=== PATIENT | male | born 1965 | race African-American/Black ===

== ENCOUNTER → 2016-06-25 | Outpatient (CLI) | payer BC ==
[2016-06-25 12:31] LABS: CLARITY URINE CLEAR (CLEAR); COLOR URINE YELLOW (YELLOW); GLUCOSE URINE TRACE (NEGATIVE); KETONES URINE NEGATIVE (NEGATIVE); LEUKOCYTE ESTERASE URINE NEGATIVE (NEGATIVE); NITRITE URINE NEGATIVE (NEGATIVE); OCCULT BLOOD URINE NEGATIVE (NEGATIVE); PROTEIN URINE TRACE (NEGATIVE); SPECIFIC GRAVITY URINE 1.026 (1.005-1.030); UROBILINOGEN URINE 0.2 E.U./dL (0.2-1.0)
[2016-06-25 12:41] LABS: BASOPHILS % 1.2 % (0.0-2.0); EOSINOPHILS % 2.6 % (0.0-5.0); LYMPHOCYTES % 38.9 % (20.0-50.0); MEAN CORPUSCULAR HEMOGLOBIN 29.4 pg (28.0-32.0); MEAN CORPUSCULAR VOLUME 86.4 fL (80.0-94.0); MEAN PLATELET VOLUME 9.2 fl (7.4-10.4); MONOCYTES % 12.8 % (2.0-8.0); NEUTROPHILS % 44.5 % (40.0-76.0); PLATELET 167 x1000/uL (130-400); RED BLOOD CELL COUNT 5.09 mill/uL (4.7-6.1); RED CELL DISTRIBUTION WIDTH 13.5 % (11.6-14.6)
[2016-06-25 12:51] LABS: ALBUMIN 3.8 g/dL (3.4-5.0); ANION GAP 13; CALCIUM 8.5 mg/dL (8.5-10.1); CARBON DIOXIDE 29 mEq/L (21-32); CHLORIDE 102 mEq/L (98-107); INDEX HEMOLYSI 1 (1-3); INDEX ICTERIC 1 (1-4); INDEX LIPEMIC 1 (1-3); UREA NITROGEN BLOOD 16 mg/dL (7-21)
[2016-06-25 12:52] LABS: RBC URINE NONE SEEN /hpf (0-2); SQUAMOUS EPITHELIAL CELL URINE NONE SEEN /lpf (RARE/1+); WBC URINE NONE SEEN /hpf (0-2)
[2016-06-25 12:53] LABS: BACTERIA URINE TRACE
[2016-06-25 12:58] LABS: ALANINE AMINOTRANSFERASE 27 IU/L (13-61); HDL CHOLESTEROL 36 mg/dL (40-59); LDL CHOLESTEROL 104 mg/dL (5-100); T4 FREE 0.85 ng/dL (0.76-1.46); TRIGLYCERIDE 77 mg/dL (0-150); eGFR > 60 mL/min (>60)
[2016-06-25 13:02] LABS: THYROID STIMULATING HORMONE 0.67 uIU/mL (0.36-3.74)
[2016-06-27 04:18] LABS: *CREATININE RANDOM URINE 229.6 mg/dL (Not Estab.)
== END | disposition home or self-care (01) ==
LOC: LAB 11:50
PROVIDERS: ATTEND Internal Medicine Endocrinology, Diabetes & Metabolism
DX: I10 Essential (primary) hypertension (principal); E11.9 Type 2 diabetes mellitus without complications; E55.9 Vitamin D deficiency, unspecified; D49.7 Neoplasm of unspecified behavior of endocrine glands and other parts of nervous system; N13.70 Vesicoureteral-reflux, unspecified
CPT/HCPCS: 36415; 80053; 80061; 81001; 82043; 82306; 82533; 82570; 83036; 84439; 84443; 85025; 87086

== ENCOUNTER → 2016-09-17 | Outpatient (CLI) | payer BC ==
[2016-09-17 11:49] LABS: BASOPHILS % 0.2 % (0.0-2.0); EOSINOPHILS % 2.6 % (0.0-5.0); HEMATOCRIT. 44.3 % (42.0-52.0); HEMOGLOBIN. 15.1 g/dL (14.0-18.0); LYMPHOCYTES % 37.1 % (20.0-50.0); MEAN CORPUSCULAR HEMOGLOBIN 29.6 pg (28.0-32.0); MEAN CORPUSCULAR VOLUME 86.6 fL (80.0-94.0); MEAN PLATELET VOLUME 8.9 fl (7.4-10.4); MONOCYTES % 11.7 % (2.0-8.0); NEUTROPHILS % 48.4 % (40.0-76.0); PLATELET 189 x1000/uL (130-400); RED BLOOD CELL COUNT 5.11 mill/uL (4.7-6.1); RED CELL DISTRIBUTION WIDTH 13.8 % (11.6-14.6)
[2016-09-17 12:07] LABS: CARBON DIOXIDE 30 mEq/L (21-32); CHLORIDE 101 mEq/L (98-107); HDL CHOLESTEROL 44 mg/dL (40-59); LDL CHOLESTEROL 94 mg/dL (5-100); T4 FREE 0.86 ng/dL (0.76-1.46)
[2016-09-18 13:07] LABS: *CREATININE RANDOM URINE 235.3 mg/dL (Not Estab.); MICROALBUMIN RANDOM URINE 39.3 ug/mL (Not Estab.); MICROALBUMIN/CREATININE RATIO 16.7 mg/g creat (0.0-30.0)
== END | disposition home or self-care (01) ==
LOC: LAB 11:24
PROVIDERS: ATTEND Internal Medicine Endocrinology, Diabetes & Metabolism
DX: I10 Essential (primary) hypertension (principal); E11.9 Type 2 diabetes mellitus without complications; E04.1 Nontoxic single thyroid nodule
CPT/HCPCS: 36415; 80053; 80061; 82043; 82570; 83036; 84439; 84443; 85025; 86800

== ENCOUNTER → 2016-12-12 | Outpatient (CLI) | payer BC ==
[2016-12-12 08:28] LABS: BASOPHILS % 0.9 % (0.0-2.0); EOSINOPHILS % 2.5 % (0.0-5.0); HEMATOCRIT. 44.8 % (42.0-52.0); HEMOGLOBIN. 15.1 g/dL (14.0-18.0); LYMPHOCYTES % 32.2 % (20.0-50.0); MEAN CORPUSCULAR HEMOGLOBIN 29.4 pg (28.0-32.0); MEAN CORPUSCULAR VOLUME 87.1 fL (80.0-94.0); MEAN PLATELET VOLUME 9.3 fl (7.4-10.4); NEUTROPHILS % 52.4 % (40.0-76.0); PLATELET 184 x1000/uL (130-400); RED BLOOD CELL COUNT 5.14 mill/uL (4.7-6.1); RED CELL DISTRIBUTION WIDTH 13.9 % (11.6-14.6)
[2016-12-12 09:30] LABS: CHLORIDE 101 mEq/L (98-107)
[2016-12-12 09:58] LABS: CARBON DIOXIDE 29 mEq/L (21-32); HDL CHOLESTEROL 42 mg/dL (40-59); LDL CHOLESTEROL 114 mg/dL (5-100); T4 FREE 0.81 ng/dL (0.76-1.46)
[2016-12-30 08:56] LABS: *CREATININE RANDOM URINE 145.6 mg/dL (Not Estab.); MICROALBUMIN RANDOM URINE 13.4 ug/mL (Not Estab.)
== END | disposition home or self-care (01) ==
LOC: LAB 07:43
PROVIDERS: ATTEND Internal Medicine Endocrinology, Diabetes & Metabolism
DX: E11.9 Type 2 diabetes mellitus without complications (principal); I10 Essential (primary) hypertension; D35.2 Benign neoplasm of pituitary gland; E78.5 Hyperlipidemia, unspecified
CPT/HCPCS: 36415; 80053; 80061; 82043; 82570; 83036; 84146; 84439; 84443; 85025

== ENCOUNTER → 2017-01-31 | Outpatient (CLI) | payer BC | END | disposition home or self-care (01) | LOC: LAB 07:30 | PROVIDERS: ATTEND Internal Medicine Endocrinology, Diabetes & Metabolism | DX: E11.9 Type 2 diabetes mellitus without complications (principal) | CPT/HCPCS: 36415; 82565; 84520 ==

== ENCOUNTER → 2017-02-04 | Outpatient (CLI) | payer BC ==
[~2017-02-04] VITALS: Ht 182.9 cm; Wt 87.1 kg
[~2017-02-04] MED LIST: IOHEXOL-350 100 ML BOTTLE ONE; NITROGLYCERIN SPRAY/4.9GM CAN TL SCH
== END ==
LOC: CT 08:48
PROVIDERS: ATTEND Internal Medicine Endocrinology, Diabetes & Metabolism
DX: E11.9 Type 2 diabetes mellitus without complications (principal); R07.9 Chest pain, unspecified
CPT/HCPCS: 75571; Q9967

== ENCOUNTER → 2017-03-20 | Outpatient (CLI) | payer BC ==
[2017-03-20 08:26] LABS: BASOPHILS % 0.2 % (0.0-2.0); EOSINOPHILS % 3.9 % (0.0-5.0); HEMATOCRIT. 48.7 % (42.0-52.0); HEMOGLOBIN. 16.3 g/dL (14.0-18.0); LYMPHOCYTES % 31.6 % (20.0-50.0); MEAN CORPUSCULAR HEMOGLOBIN 29.5 pg (28.0-32.0); MEAN CORPUSCULAR VOLUME 87.8 fL (80.0-94.0); MEAN PLATELET VOLUME 9.1 fl (7.4-10.4); NEUTROPHILS % 52.3 % (40.0-76.0); PLATELET 170 x1000/uL (130-400); RED BLOOD CELL COUNT 5.54 mill/uL (4.7-6.1); RED CELL DISTRIBUTION WIDTH 13.6 % (11.6-14.6)
[2017-03-20 08:52] LABS: CARBON DIOXIDE 30 mEq/L (21-32); CHLORIDE 101 mEq/L (98-107); HDL CHOLESTEROL 44 mg/dL (40-59); LDL CHOLESTEROL 112 mg/dL (5-100); T4 FREE 0.87 ng/dL (0.76-1.46)
[2017-03-22 06:15] LABS: PROLACTIN 0.5 ng/mL (4.0-15.2); VITAMIN D 25-OH 41.5 ng/mL (30.0-100.0)
[2017-03-22 13:11] LABS: *CREATININE RANDOM URINE 110.9 mg/dL (Not Estab.); MICROALBUMIN RANDOM URINE 5.5 ug/mL (Not Estab.)
== END | disposition home or self-care (01) ==
LOC: LAB 07:33
PROVIDERS: ATTEND Internal Medicine Endocrinology, Diabetes & Metabolism
DX: I10 Essential (primary) hypertension (principal); E11.9 Type 2 diabetes mellitus without complications; E78.5 Hyperlipidemia, unspecified; D35.2 Benign neoplasm of pituitary gland
CPT/HCPCS: 36415; 80053; 80061; 82043; 82306; 82570; 83036; 84146; 84439; 84443; 85025

== ENCOUNTER → 2017-05-18 | Outpatient (CLI) | payer BC ==
[~2017-05-18] MED LIST changes: +GADOBENATE DIMEGLUMINE 529 MG/ML 10ML IV ONE; -IOHEXOL-350 100 ML BOTTLE ONE; -NITROGLYCERIN SPRAY/4.9GM CAN TL SCH
== END | disposition home or self-care (01) ==
LOC: MRI 12:16
PROVIDERS: ATTEND Internal Medicine Endocrinology, Diabetes & Metabolism
DX: D35.2 Benign neoplasm of pituitary gland (principal)
CPT/HCPCS: 70553; A9577

== ENCOUNTER → 2017-07-01 | Outpatient (CLI) | payer BC ==
[2017-07-01 13:09] LABS: BASOPHILS % 1.4 % (0.0-2.0); EOSINOPHILS % 2.9 % (0.0-5.0); HEMATOCRIT. 45.6 % (42.0-52.0); HEMOGLOBIN. 15.7 g/dL (14.0-18.0); LYMPHOCYTES % 29.8 % (20.0-50.0); MEAN CORPUSCULAR HEMOGLOBIN 30.2 pg (28.0-32.0); MEAN CORPUSCULAR VOLUME 87.9 fL (80.0-94.0); MEAN PLATELET VOLUME 8.6 fl (7.4-10.4); MONOCYTES % 11.3 % (2.0-8.0); NEUTROPHILS % 54.6 % (40.0-76.0); PLATELET 195 x1000/uL (130-400); RED BLOOD CELL COUNT 5.18 mill/uL (4.7-6.1); RED CELL DISTRIBUTION WIDTH 14.2 % (11.6-14.6)
[2017-07-01 13:40] LABS: CHLORIDE 100 mEq/L (98-107)
[2017-07-01 13:49] LABS: LDL CHOLESTEROL 113 mg/dL (5-100)
[2017-07-01 13:50] LABS: T4 FREE 0.83 ng/dL (0.76-1.46)
[2017-07-01 13:52] LABS: HDL CHOLESTEROL 47 mg/dL (40-59)
[2017-07-01 13:56] LABS: CORTISOL 12.5 ucg/dL; PROSTRATE SPECIFIC AG TOTAL 1.46 ng/mL (0.0-4.0)
[2017-07-01 14:09] LABS: VITAMIN B12 SERUM 423 pg/mL (211-911)
[2017-07-01 14:11] LABS: FOLIC ACID (FOLATE) SERUM > 20.00 ng/mL (>5.38)
[2017-07-03 09:15] LABS: FOLICLE STIMULATING HORMONE 10.2 mIU/mL (1.5-12.4); LUTEINIZING HORMONE 4.2 mIU/mL (1.7-8.6); RF PROFILE < 10.0 IU/mL (0.0-13.9)
[2017-07-03 10:07] LABS: *CREATININE RANDOM URINE 134.7 mg/dL (Not Estab.); MICROALBUMIN RANDOM URINE 5.2 ug/mL (Not Estab.)
[2017-07-03 13:11] LABS: VITAMIN D 25-OH 34.2 ng/mL (30.0-100.0)
== END | disposition home or self-care (01) ==
LOC: LAB 12:14
PROVIDERS: ATTEND Internal Medicine Endocrinology, Diabetes & Metabolism
DX: Z13.89 Encounter for screening for other disorder (principal); D35.2 Benign neoplasm of pituitary gland; I10 Essential (primary) hypertension; E11.9 Type 2 diabetes mellitus without complications; E78.5 Hyperlipidemia, unspecified
CPT/HCPCS: 36415; 80053; 80061; 82043; 82306; 82533; 82570; 82607; 82746; 83001; 83002; 83036; 83519; 83921; 84153; 84305; 84402; 84403; 84439; 84443; 85025; 85651; 86038; 86200; 86431

== ENCOUNTER → 2017-10-16 | Outpatient (CLI) | payer BC ==
[2017-10-16 09:34] LABS: BASOPHILS % 1.7 % (0.0-2.0); EOSINOPHILS % 4.2 % (0.0-5.0); HEMATOCRIT. 46.6 % (42.0-52.0); LYMPHOCYTES % 39.4 % (20.0-50.0); MEAN CORPUSCULAR VOLUME 87.7 fL (80.0-94.0); MONOCYTES % 12.1 % (2.0-8.0); NEUTROPHILS % 42.6 % (40.0-76.0); PLATELET 197 x1000/uL (130-400); RED BLOOD CELL COUNT 5.32 mill/uL (4.7-6.1); RED CELL DISTRIBUTION WIDTH 13.7 % (11.6-14.6)
[2017-10-16 10:30] LABS: CHLORIDE 101 mEq/L (98-107)
[2017-10-16 10:42] LABS: T4 FREE 0.92 ng/dL (0.76-1.46)
[2017-10-16 10:43] LABS: HDL CHOLESTEROL 37 mg/dL (40-59); LDL CHOLESTEROL 122 mg/dL (5-100)
[2017-10-18 09:06] LABS: VITAMIN D 25-OH 33.6 ng/mL (30.0-100.0)
[2017-10-18 13:11] LABS: PROLACTIN 0.4 ng/mL (4.0-15.2)
== END | disposition home or self-care (01) ==
LOC: LAB 08:58
PROVIDERS: ATTEND Internal Medicine Endocrinology, Diabetes & Metabolism
DX: E11.9 Type 2 diabetes mellitus without complications (principal); I10 Essential (primary) hypertension; E04.1 Nontoxic single thyroid nodule; D35.2 Benign neoplasm of pituitary gland
CPT/HCPCS: 36415; 80053; 80061; 82306; 83036; 84146; 84439; 84443; 84550; 85025

== ENCOUNTER → 2018-01-31 | Outpatient (CLI) | payer BC ==
[2018-01-31 09:28] LABS: CLARITY URINE CLEAR (CLEAR); COLOR URINE YELLOW (YELLOW); KETONES URINE NEGATIVE (NEGATIVE); LEUKOCYTE ESTERASE URINE NEGATIVE (NEGATIVE); NITRITE URINE NEGATIVE (NEGATIVE); OCCULT BLOOD URINE NEGATIVE (NEGATIVE); PROTEIN URINE NEGATIVE (NEGATIVE); SPECIFIC GRAVITY URINE 1.036 (1.005-1.030); UROBILINOGEN URINE 0.2 E.U./dL (0.2-1.0)
[2018-01-31 09:30] LABS: BASOPHILS % 1.6 % (0.0-2.0); EOSINOPHILS % 2.7 % (0.0-5.0); HEMATOCRIT. 46.5 % (42.0-52.0); HEMOGLOBIN. 15.7 g/dL (14.0-18.0); MEAN CORPUSCULAR HEMOGLOBIN 30.2 pg (28.0-32.0); MEAN PLATELET VOLUME 8.5 fl (7.4-10.4); MONOCYTES % 9.4 % (2.0-8.0); NEUTROPHILS % 54.3 % (40.0-76.0); PLATELET 229 x1000/uL (130-400); RED BLOOD CELL COUNT 5.22 mill/uL (4.7-6.1); RED CELL DISTRIBUTION WIDTH 13.9 % (11.6-14.6)
[2018-01-31 09:36] LABS: CHLORIDE 100 mEq/L (98-107)
[2018-01-31 09:46] LABS: T4 FREE 0.87 ng/dL (0.76-1.46)
[2018-02-01 08:20] LABS: PROLACTIN 0.3 ng/mL (4.0-15.2); VITAMIN D 25-OH 28.4 ng/mL (30.0-100.0)
[2018-02-01 13:11] LABS: *CREATININE RANDOM URINE 114.2 mg/dL (Not Estab.); MICROALBUMIN RANDOM URINE 4.3 ug/mL (Not Estab.)
== END | disposition home or self-care (01) ==
LOC: LAB 06:08
PROVIDERS: ATTEND Internal Medicine Endocrinology, Diabetes & Metabolism
DX: E11.9 Type 2 diabetes mellitus without complications (principal); I10 Essential (primary) hypertension; E78.5 Hyperlipidemia, unspecified; E04.1 Nontoxic single thyroid nodule
CPT/HCPCS: 36415; 82043; 82306; 82570; 83036; 84146; 84439; 84443; 84550

== ENCOUNTER → 2018-02-04 | Outpatient (CLI) | payer BC | END | disposition home or self-care (01) | LOC: RAD 09:32 | PROVIDERS: ATTEND Internal Medicine Endocrinology, Diabetes & Metabolism | DX: J40 Bronchitis, not specified as acute or chronic (principal) | CPT/HCPCS: 71046 ==

== ENCOUNTER → 2018-03-19 | Outpatient (CLI) | payer BC ==
[2018-03-19 08:42] LABS: BASOPHILS % 1.1 % (0.0-2.0); EOSINOPHILS % 3.7 % (0.0-5.0); HEMATOCRIT. 46.8 % (42.0-52.0); HEMOGLOBIN. 15.3 g/dL (14.0-18.0); LYMPHOCYTES % 33.7 % (20.0-50.0); MEAN CORPUSCULAR HEMOGLOBIN 29.3 pg (28.0-32.0); MEAN CORPUSCULAR VOLUME 89.7 fL (80.0-94.0); MEAN PLATELET VOLUME 9.3 fl (7.4-10.4); MONOCYTES % 12.6 % (2.0-8.0); NEUTROPHILS % 48.9 % (40.0-76.0); PLATELET 177 x1000/uL (130-400); RED BLOOD CELL COUNT 5.22 mill/uL (4.7-6.1); RED CELL DISTRIBUTION WIDTH 14.1 % (11.6-14.6)
[2018-03-19 09:27] LABS: CHLORIDE 104 mEq/L (98-107)
[2018-03-19 09:37] LABS: HDL CHOLESTEROL 42 mg/dL (40-59)
[2018-03-19 09:39] LABS: T4 FREE 0.84 ng/dL (0.76-1.46)
[2018-03-19 09:43] LABS: LDL CHOLESTEROL 104 mg/dL (5-100)
[2018-03-20 08:13] LABS: PROLACTIN 0.4 ng/mL (4.0-15.2); VITAMIN D 25-OH 26.6 ng/mL (30.0-100.0)
== END | disposition home or self-care (01) ==
LOC: LAB 07:40
PROVIDERS: ATTEND Internal Medicine Endocrinology, Diabetes & Metabolism
DX: E11.9 Type 2 diabetes mellitus without complications (principal); E04.1 Nontoxic single thyroid nodule; R60.9 Edema, unspecified
CPT/HCPCS: 36415; 80061; 82306; 82533; 83036; 84146; 84439; 84443; 84550

== ENCOUNTER → 2018-06-06 | Outpatient (CLI) | payer BC ==
[2018-06-06 08:10] LABS: BASOPHILS % 1.2 % (0.0-2.0); EOSINOPHILS % 4.7 % (0.0-5.0); HEMATOCRIT. 49.4 % (42.0-52.0); HEMOGLOBIN. 16.8 g/dL (14.0-18.0); LYMPHOCYTES % 32.8 % (20.0-50.0); MEAN CORPUSCULAR HEMOGLOBIN 29.8 pg (28.0-32.0); MEAN CORPUSCULAR VOLUME 87.4 fL (80.0-94.0); MEAN PLATELET VOLUME 9.1 fl (7.4-10.4); MONOCYTES % 11.9 % (2.0-8.0); NEUTROPHILS % 49.4 % (40.0-76.0); PLATELET 185 x1000/uL (130-400); RED BLOOD CELL COUNT 5.65 mill/uL (4.7-6.1); RED CELL DISTRIBUTION WIDTH 14.1 % (11.6-14.6)
[2018-06-06 09:04] LABS: CHLORIDE 103 mEq/L (98-107)
[2018-06-06 09:11] LABS: LDL CHOLESTEROL 147 mg/dL (5-100)
[2018-06-06 09:13] LABS: HDL CHOLESTEROL 44 mg/dL (40-59); T4 FREE 0.94 ng/dL (0.76-1.46)
[2018-06-07 08:19] LABS: *CREATININE RANDOM URINE 96.7 mg/dL (Not Estab.); MICROALBUMIN RANDOM URINE 5.9 ug/mL (Not Estab.)
== END | disposition home or self-care (01) ==
LOC: LAB 06:15
PROVIDERS: ATTEND Internal Medicine Endocrinology, Diabetes & Metabolism
DX: E11.9 Type 2 diabetes mellitus without complications (principal); E78.5 Hyperlipidemia, unspecified; M10.9 Gout, unspecified; D35.2 Benign neoplasm of pituitary gland
CPT/HCPCS: 36415; 80061; 82043; 82306; 82533; 82570; 83036; 84145; 84439; 84443; 84550

== ENCOUNTER → 2018-06-08 | Outpatient (CLI) | payer BC | END | disposition home or self-care (01) | LOC: US 13:42 | PROVIDERS: ATTEND Internal Medicine Endocrinology, Diabetes & Metabolism | DX: E04.1 Nontoxic single thyroid nodule (principal) | CPT/HCPCS: 70553; 76536; A9577 ==

== ENCOUNTER → 2018-09-15 | Outpatient (CLI) | payer BC | END | disposition home or self-care (01) | LOC: RAD 15:51 | PROVIDERS: ATTEND Internal Medicine Endocrinology, Diabetes & Metabolism | DX: R06.02 Shortness of breath (principal) | CPT/HCPCS: 71046 ==

== ENCOUNTER → 2018-10-01 | Outpatient (CLI) | payer BC ==
[2018-10-01 09:12] LABS: EOSINOPHILS % 4.4 % (0.0-5.0); HEMATOCRIT. 43.4 % (42.0-52.0); LYMPHOCYTES % 30.7 % (20.0-50.0); MEAN CORPUSCULAR HEMOGLOBIN 30.6 pg (28.0-32.0); MEAN CORPUSCULAR VOLUME 88.5 fL (80.0-94.0); MEAN PLATELET VOLUME 8.9 fl (7.4-10.4); MONOCYTES % 10.5 % (2.0-8.0); NEUTROPHILS % 53.4 % (40.0-76.0); PLATELET 167 x1000/uL (130-400)
[2018-10-01 09:18] LABS: CHLORIDE 102 mEq/L (98-107)
[2018-10-01 09:26] LABS: LDL CHOLESTEROL 106 mg/dL (5-100)
[2018-10-01 09:27] LABS: HDL CHOLESTEROL 40 mg/dL (40-59); T4 FREE 0.93 ng/dL (0.76-1.46)
[2018-10-03 04:12] LABS: VITAMIN D 25-OH 36.1 ng/mL (30.0-100.0)
== END | disposition home or self-care (01) ==
LOC: LAB 07:57
PROVIDERS: ATTEND Internal Medicine Endocrinology, Diabetes & Metabolism
DX: E11.9 Type 2 diabetes mellitus without complications (principal); E55.9 Vitamin D deficiency, unspecified; E78.5 Hyperlipidemia, unspecified; D35.2 Benign neoplasm of pituitary gland
CPT/HCPCS: 36415; 80061; 82306; 82533; 83036; 84146; 84439; 84443

== ENCOUNTER → 2018-12-09 | Outpatient (CLI) | payer BC ==
[2018-12-09 08:11] LABS: BASOPHILS % 1.7 % (0.0-2.0); EOSINOPHILS % 2.7 % (0.0-5.0); HEMATOCRIT. 46.3 % (42.0-52.0); HEMOGLOBIN. 15.6 g/dL (14.0-18.0); LYMPHOCYTES % 29.7 % (20.0-50.0); MEAN CORPUSCULAR HEMOGLOBIN 29.9 pg (28.0-32.0); MEAN CORPUSCULAR VOLUME 88.8 fL (80.0-94.0); MEAN PLATELET VOLUME 8.9 fl (7.4-10.4); MONOCYTES % 10.6 % (2.0-8.0); NEUTROPHILS % 55.3 % (40.0-76.0); PLATELET 182 x1000/uL (130-400); RED BLOOD CELL COUNT 5.21 mill/uL (4.7-6.1); RED CELL DISTRIBUTION WIDTH 13.8 % (11.6-14.6)
[2018-12-09 08:21] LABS: CHLORIDE 104 mEq/L (98-107)
[2018-12-09 08:28] LABS: LDL CHOLESTEROL 108 mg/dL (5-100)
[2018-12-09 08:30] LABS: HDL CHOLESTEROL 44 mg/dL (40-59)
[2018-12-09 10:43] LABS: CORTISOL 12.9 ucg/dL; PROSTRATE SPECIFIC AG TOTAL 1.67 ng/mL (0.0-4.0)
[2018-12-10 09:07] LABS: *CREATININE RANDOM URINE 89.2 mg/dL (Not Estab.); MICROALBUMIN RANDOM URINE 3.8 ug/mL (Not Estab.)
[2018-12-10 09:07] LABS: PROLACTIN 3.7 ng/mL (4.0-15.2)
[2018-12-11 05:07] LABS: VITAMIN D 25-OH 35.9 ng/mL (30.0-100.0)
== END | disposition home or self-care (01) ==
LOC: LAB 07:19
PROVIDERS: ATTEND Internal Medicine Endocrinology, Diabetes & Metabolism
DX: E11.9 Type 2 diabetes mellitus without complications (principal); E78.00 Pure hypercholesterolemia, unspecified; D35.2 Benign neoplasm of pituitary gland
CPT/HCPCS: 36415; 80061; 82043; 82306; 82533; 82570; 83036; 84146; 84153; 84439; 84443; G0103

== ENCOUNTER → 2019-03-15 | Outpatient (CLI) | payer BC ==
[2019-03-15 08:41] LABS: BASOPHILS % 1.4 % (0.0-2.0); EOSINOPHILS % 3.7 % (0.0-5.0); HEMATOCRIT. 49.7 % (42.0-52.0); HEMOGLOBIN. 16.5 g/dL (14.0-18.0); LYMPHOCYTES % 31.3 % (20.0-50.0); MEAN CORPUSCULAR HEMOGLOBIN 29.6 pg (28.0-32.0); MONOCYTES % 13.1 % (2.0-8.0); NEUTROPHILS % 50.5 % (40.0-76.0); PLATELET 177 x1000/uL (130-400); RED BLOOD CELL COUNT 5.58 mill/uL (4.7-6.1)
[2019-03-15 09:11] LABS: CHLORIDE 105 mEq/L (98-107)
[2019-03-15 09:23] LABS: HDL CHOLESTEROL 44 mg/dL (40-59); LDL CHOLESTEROL 137 mg/dL (5-100)
[2019-03-15 09:24] LABS: T4 FREE 0.97 ng/dL (0.76-1.46)
[2019-03-16 09:09] LABS: VITAMIN D 25-OH 40.1 ng/mL (30.0-100.0)
[2019-03-16 13:06] LABS: PROLACTIN 24.3 ng/mL (4.0-15.2)
== END | disposition home or self-care (01) ==
LOC: LAB 08:05
PROVIDERS: ATTEND Internal Medicine Endocrinology, Diabetes & Metabolism
DX: I10 Essential (primary) hypertension (principal); E11.9 Type 2 diabetes mellitus without complications; E04.1 Nontoxic single thyroid nodule; D35.2 Benign neoplasm of pituitary gland
CPT/HCPCS: 36415; 80053; 80061; 82306; 82533; 83036; 84146; 84439; 84443; 85025

== ENCOUNTER → 2019-05-17 | Outpatient (CLI) | payer BC | END | disposition home or self-care (01) | LOC: LAB 15:03 | PROVIDERS: ATTEND Internal Medicine Endocrinology, Diabetes & Metabolism | DX: E78.5 Hyperlipidemia, unspecified (principal); D49.7 Neoplasm of unspecified behavior of endocrine glands and other parts of nervous system; E11.9 Type 2 diabetes mellitus without complications | CPT/HCPCS: 36415; 80061; 83036; 84146 ==

== ENCOUNTER → 2019-07-04 | Outpatient (CLI) | payer BC ==
[2019-07-04 09:55] LABS: BASOPHILS % 1.4 % (0.0-2.0); EOSINOPHILS % 2.8 % (0.0-5.0); HEMATOCRIT. 48.6 % (42.0-52.0); HEMOGLOBIN. 16.7 g/dL (14.0-18.0); LYMPHOCYTES % 30.1 % (20.0-50.0); MEAN CORPUSCULAR HEMOGLOBIN 30.5 pg (28.0-32.0); MEAN CORPUSCULAR VOLUME 88.7 fL (80.0-94.0); MEAN PLATELET VOLUME 8.8 fl (7.4-10.4); MONOCYTES % 12.9 % (2.0-8.0); NEUTROPHILS % 52.8 % (40.0-76.0); PLATELET 191 x1000/uL (130-400); RED BLOOD CELL COUNT 5.47 mill/uL (4.7-6.1); RED CELL DISTRIBUTION WIDTH 13.5 % (11.6-14.6)
[2019-07-04 10:11] LABS: CHLORIDE 102 mEq/L (98-107)
[2019-07-04 10:19] LABS: LDL CHOLESTEROL 134 mg/dL (5-100)
[2019-07-04 10:21] LABS: HDL CHOLESTEROL 44 mg/dL (40-59); T4 FREE 0.97 ng/dL (0.76-1.46)
[2019-07-05 05:08] LABS: PROLACTIN 19.5 ng/mL (4.0-15.2); VITAMIN D 25-OH 41.5 ng/mL (30.0-100.0)
== END | disposition home or self-care (01) ==
LOC: LAB 08:04
PROVIDERS: ATTEND Internal Medicine Endocrinology, Diabetes & Metabolism
DX: I10 Essential (primary) hypertension (principal); E04.1 Nontoxic single thyroid nodule; E55.9 Vitamin D deficiency, unspecified; D35.2 Benign neoplasm of pituitary gland
CPT/HCPCS: 36415; 80053; 80061; 82306; 82533; 83036; 84146; 84439; 84443; 85025

== ENCOUNTER → 2019-07-12 | Outpatient (CLI) | payer BC | END | disposition home or self-care (01) | LOC: MRI 12:35 | PROVIDERS: ATTEND Internal Medicine Endocrinology, Diabetes & Metabolism | DX: D49.7 Neoplasm of unspecified behavior of endocrine glands and other parts of nervous system (principal); I67.82 Cerebral ischemia | CPT/HCPCS: 70553; A9577 ==

== ENCOUNTER → 2019-10-02 | Outpatient (CLI) | payer BC ==
[2019-10-02 15:34] LABS: BASOPHILS % 1.2 % (0.0-2.0); HEMATOCRIT. 48.9 % (42.0-52.0); HEMOGLOBIN. 16.4 g/dL (14.0-18.0); LYMPHOCYTES % 31.3 % (20.0-50.0); MEAN CORPUSCULAR HEMOGLOBIN 29.8 pg (28.0-32.0); MEAN CORPUSCULAR VOLUME 88.7 fL (80.0-94.0); MEAN PLATELET VOLUME 8.6 fl (7.4-10.4); MONOCYTES % 11.4 % (2.0-8.0); NEUTROPHILS % 53.1 % (40.0-76.0); PLATELET 205 x1000/uL (130-400); RED BLOOD CELL COUNT 5.51 mill/uL (4.7-6.1); RED CELL DISTRIBUTION WIDTH 13.8 % (11.6-14.6)
[2019-10-02 15:46] LABS: CHLORIDE 103 mEq/L (98-107)
[2019-10-02 15:55] LABS: LDL CHOLESTEROL 132 mg/dL (5-100)
[2019-10-02 15:56] LABS: HDL CHOLESTEROL 42 mg/dL (40-59); T4 FREE 0.86 ng/dL (0.76-1.46)
[2019-10-04 07:07] LABS: PROLACTIN 20.6 ng/mL (4.0-15.2); VITAMIN D 25-OH 36.7 ng/mL (30.0-100.0)
== END | disposition home or self-care (01) ==
LOC: RAD 15:08
PROVIDERS: ATTEND Internal Medicine Endocrinology, Diabetes & Metabolism
DX: S89.81XD Other specified injuries of right lower leg, subsequent encounter (principal); M25.561 Pain in right knee; W34.00XD Accidental discharge from unspecified firearms or gun, subsequent encounter
CPT/HCPCS: 36415; 73502; 73562; 80053; 80061; 82306; 82533; 83036; 84146; 84439; 84443; 85025

== ENCOUNTER → 2020-02-25 | Outpatient (CLI) | payer BC ==
[2020-02-25 10:22] LABS: BASOPHILS % 1.2 % (0.0-2.0); EOSINOPHILS % 3.3 % (0.0-5.0); HEMATOCRIT. 47.6 % (42.0-52.0); LYMPHOCYTES % 29.4 % (20.0-50.0); MEAN CORPUSCULAR HEMOGLOBIN 29.6 pg (28.0-32.0); MONOCYTES % 13.3 % (2.0-8.0); NEUTROPHILS % 52.8 % (40.0-76.0); PLATELET 196 x1000/uL (130-400); RED BLOOD CELL COUNT 5.41 mill/uL (4.7-6.1)
[2020-02-25 10:29] LABS: CHLORIDE 102 mEq/L (98-107)
[2020-02-25 10:35] LABS: CLARITY URINE CLEAR (CLEAR); COLOR URINE YELLOW (YELLOW); KETONES URINE NEGATIVE (NEGATIVE); LEUKOCYTE ESTERASE URINE NEGATIVE (NEGATIVE); NITRITE URINE NEGATIVE (NEGATIVE); OCCULT BLOOD URINE NEGATIVE (NEGATIVE); PH URINE 5.5 (4.5-8.0); PROTEIN URINE NEGATIVE (NEGATIVE); SPECIFIC GRAVITY URINE 1.035 (1.005-1.030); UROBILINOGEN URINE 0.2 E.U./dL (0.2-1.0)
[2020-02-25 10:36] LABS: LDL CHOLESTEROL 127 mg/dL (5-100)
[2020-02-25 10:37] LABS: HDL CHOLESTEROL 48 mg/dL (40-59)
[2020-02-25 10:38] LABS: T4 FREE 0.86 ng/dL (0.76-1.46)
[2020-02-26 08:07] LABS: *CREATININE RANDOM URINE 113.5 mg/dL (Not Estab.); MICROALBUMIN RANDOM URINE 4.7 ug/mL (Not Estab.)
== END | disposition home or self-care (01) ==
LOC: LAB 09:26
PROVIDERS: ATTEND Internal Medicine Endocrinology, Diabetes & Metabolism
DX: E11.9 Type 2 diabetes mellitus without complications (principal); I10 Essential (primary) hypertension; E04.1 Nontoxic single thyroid nodule; D35.2 Benign neoplasm of pituitary gland
CPT/HCPCS: 36415; 80053; 80061; 81003; 82043; 82306; 82570; 83036; 84439; 84443; 85025

== ENCOUNTER → 2020-06-24 | Outpatient (CLI) | payer BC ==
[2020-06-24 09:06] LABS: BASOPHILS % 1.3 % (0.0-2.0); EOSINOPHILS % 1.5 % (0.0-5.0); HEMATOCRIT. 49.4 % (42.0-52.0); HEMOGLOBIN. 16.6 g/dL (14.0-18.0); LYMPHOCYTES % 28.4 % (20.0-50.0); MEAN CORPUSCULAR VOLUME 89.2 fL (80.0-94.0); MEAN PLATELET VOLUME 9.4 fl (7.4-10.4); MONOCYTES % 11.9 % (2.0-8.0); NEUTROPHILS % 56.9 % (40.0-76.0); PLATELET 202 x1000/uL (130-400); RED BLOOD CELL COUNT 5.54 mill/uL (4.7-6.1); RED CELL DISTRIBUTION WIDTH 14.4 % (11.6-14.6)
[2020-06-24 09:08] LABS: CLARITY URINE CLEAR (CLEAR); COLOR URINE YELLOW (YELLOW); KETONES URINE NEGATIVE (NEGATIVE); LEUKOCYTE ESTERASE URINE NEGATIVE (NEGATIVE); NITRITE URINE NEGATIVE (NEGATIVE); OCCULT BLOOD URINE NEGATIVE (NEGATIVE); PROTEIN URINE NEGATIVE (NEGATIVE); SPECIFIC GRAVITY URINE 1.041 (1.005-1.030); UROBILINOGEN URINE 0.2 E.U./dL (0.2-1.0)
[2020-06-24 09:11] LABS: CHLORIDE 105 mEq/L (98-107)
[2020-06-24 09:18] LABS: LDL CHOLESTEROL 114 mg/dL (5-100)
[2020-06-24 09:19] LABS: HDL CHOLESTEROL 46 mg/dL (40-59); T4 FREE 0.92 ng/dL (0.76-1.46)
[2020-06-25 08:08] LABS: *CREATININE RANDOM URINE 134.7 mg/dL (Not Estab.); MICROALBUMIN RANDOM URINE 8.3 ug/mL (Not Estab.)
== END | disposition home or self-care (01) ==
LOC: LAB 08:33
PROVIDERS: ATTEND Internal Medicine Endocrinology, Diabetes & Metabolism
DX: Z13.9 Encounter for screening, unspecified (principal); I10 Essential (primary) hypertension; E11.9 Type 2 diabetes mellitus without complications; D49.7 Neoplasm of unspecified behavior of endocrine glands and other parts of nervous system
CPT/HCPCS: 36415; 80053; 80061; 81003; 82043; 82570; 83036; 84146; 84153; 84439; 84443; 85025; G0103

== ENCOUNTER → 2020-06-27 | Outpatient (CLI) | payer BC ==
[~2020-06-27] MED LIST changes: -GADOBENATE DIMEGLUMINE 529 MG/ML 10ML IV ONE; +GADOTERATE MEGLUMINE 5 MMOL/10 ML VIAL IV ONE
== END | disposition home or self-care (01) ==
LOC: MRI 07:45
PROVIDERS: ATTEND Internal Medicine Endocrinology, Diabetes & Metabolism
DX: D35.2 Benign neoplasm of pituitary gland (principal); I67.82 Cerebral ischemia; G31.9 Degenerative disease of nervous system, unspecified
CPT/HCPCS: 70553; A9577

== ENCOUNTER → 2020-12-09 | Outpatient (CLI) | payer BC ==
[2020-12-09 11:47] LABS: EOSINOPHILS % 3.9 % (0.0-5.0); HEMATOCRIT. 51.6 % (42.0-52.0); HEMOGLOBIN. 17.1 g/dL (14.0-18.0); LYMPHOCYTES % 26.8 % (20.0-50.0); MEAN CORPUSCULAR HEMOGLOBIN 29.6 pg (28.0-32.0); MEAN CORPUSCULAR VOLUME 89.4 fL (80.0-94.0); MEAN PLATELET VOLUME 9.4 fl (7.4-10.4); MONOCYTES % 9.4 % (2.0-8.0); NEUTROPHILS % 58.9 % (40.0-76.0); PLATELET 195 x1000/uL (130-400); RED BLOOD CELL COUNT 5.78 mill/uL (4.7-6.1); RED CELL DISTRIBUTION WIDTH 14.2 % (11.6-14.6)
[2020-12-09 12:00] LABS: CHLORIDE 106 mEq/L (98-107)
[2020-12-09 12:09] LABS: LDL CHOLESTEROL 132 mg/dL (5-100)
[2020-12-09 12:10] LABS: HDL CHOLESTEROL 47 mg/dL (40-59)
[2020-12-09 12:11] LABS: T4 FREE 0.72 ng/dL (0.76-1.46)
[2020-12-10 05:10] LABS: PROLACTIN 20.6 ng/mL (4.0-15.2); VITAMIN D 25-OH 41.6 ng/mL (30.0-100.0)
== END | disposition home or self-care (01) ==
LOC: LAB 09:28
PROVIDERS: ATTEND Internal Medicine Endocrinology, Diabetes & Metabolism
DX: C75.1 Malignant neoplasm of pituitary gland (principal); E11.9 Type 2 diabetes mellitus without complications; E78.5 Hyperlipidemia, unspecified; I10 Essential (primary) hypertension
CPT/HCPCS: 36415; 80053; 80061; 82306; 82533; 83036; 84146; 84439; 84443; 85025

== ENCOUNTER → 2021-04-22 | Outpatient (CLI) | payer BC ==
[2021-04-22 11:09] LABS: BASOPHILS % 1.3 % (0.0-2.0); HEMATOCRIT. 45.9 % (42.0-52.0); HEMOGLOBIN. 15.9 g/dL (14.0-18.0); LYMPHOCYTES % 26.3 % (20.0-50.0); MEAN CORPUSCULAR HEMOGLOBIN 30.3 pg (28.0-32.0); MEAN CORPUSCULAR VOLUME 87.4 fL (80.0-94.0); MEAN PLATELET VOLUME 9.3 fl (7.4-10.4); MONOCYTES % 10.5 % (2.0-8.0); NEUTROPHILS % 58.9 % (40.0-76.0); PLATELET 196 x1000/uL (130-400); RED BLOOD CELL COUNT 5.26 mill/uL (4.7-6.1); RED CELL DISTRIBUTION WIDTH 13.7 % (11.6-14.6)
[2021-04-22 11:15] LABS: CHLORIDE 103 mEq/L (98-107)
[2021-04-22 11:23] LABS: LDL CHOLESTEROL 160 mg/dL (5-100)
[2021-04-22 11:24] LABS: HDL CHOLESTEROL 43 mg/dL (40-59); T4 FREE 0.85 ng/dL (0.76-1.46)
[2021-04-23 07:10] LABS: *CREATININE RANDOM URINE 81.4 mg/dL (Not Estab.)
[2021-04-24 09:07] LABS: INSULIN-LIKE GROWTH FACTOR 1 152 ng/mL (68-247)
== END | disposition home or self-care (01) ==
LOC: LAB 08:08
PROVIDERS: ATTEND Internal Medicine Endocrinology, Diabetes & Metabolism
DX: D49.7 Neoplasm of unspecified behavior of endocrine glands and other parts of nervous system (principal); E11.9 Type 2 diabetes mellitus without complications; I10 Essential (primary) hypertension; E04.1 Nontoxic single thyroid nodule
CPT/HCPCS: 36415; 80053; 80061; 82024; 82043; 82533; 82570; 83036; 84146; 84305; 84402; 84403; 84439; 84443; 85025

== ENCOUNTER → 2021-07-07 | Outpatient (CLI) | payer BC | END | disposition home or self-care (01) | LOC: RAD 14:16 | PROVIDERS: ATTEND Internal Medicine Endocrinology, Diabetes & Metabolism | DX: M25.552 Pain in left hip (principal) | CPT/HCPCS: 73503 ==

== ENCOUNTER → 2022-03-05 | Outpatient (CLI) | payer BC ==
[2022-03-05 09:06] LABS: BASOPHILS % 1.3 % (0.0-2.0); EOSINOPHILS % 2.6 % (0.0-5.0); HEMATOCRIT. 44.5 % (42.0-52.0); HEMOGLOBIN. 15.2 g/dL (14.0-18.0); MEAN CORPUSCULAR HEMOGLOBIN 30.2 pg (28.0-32.0); MEAN CORPUSCULAR VOLUME 88.5 fL (80.0-94.0); MONOCYTES % 13.1 % (2.0-8.0); PLATELET 193 x1000/uL (130-400); RED BLOOD CELL COUNT 5.03 mill/uL (4.7-6.1); RED CELL DISTRIBUTION WIDTH 14.2 % (11.6-14.6)
[2022-03-05 09:10] LABS: CHLORIDE 106 mEq/L (98-107)
[2022-03-05 09:23] LABS: HDL CHOLESTEROL 46 mg/dL (40-59); LDL CHOLESTEROL 120 mg/dL (5-100); T4 FREE 0.87 ng/dL (0.76-1.46)
[2022-03-06 09:09] LABS: VITAMIN D 25-OH 46.4 ng/mL (30.0-100.0)
== END | disposition home or self-care (01) ==
LOC: LAB 08:25
PROVIDERS: ATTEND Internal Medicine Endocrinology, Diabetes & Metabolism
DX: D35.2 Benign neoplasm of pituitary gland (principal); E78.5 Hyperlipidemia, unspecified; E11.9 Type 2 diabetes mellitus without complications; E55.9 Vitamin D deficiency, unspecified; E04.1 Nontoxic single thyroid nodule
CPT/HCPCS: 36415; 80053; 80061; 82306; 82533; 83036; 84146; 84439; 84443; 85025

== ENCOUNTER → 2022-03-10 | Outpatient (CLI) | payer BC | END | disposition home or self-care (01) | LOC: MRI 08:12 | PROVIDERS: ATTEND Internal Medicine Endocrinology, Diabetes & Metabolism | DX: D35.2 Benign neoplasm of pituitary gland (principal) | CPT/HCPCS: 70553; A9577 ==

== ENCOUNTER → 2022-04-29 | Outpatient (CLI) | payer BC ==
[2022-04-29 15:42] LABS: BASOPHILS % 0.5 % (0.0-2.0); HEMATOCRIT. 49.1 % (42.0-52.0); HEMOGLOBIN. 16.7 g/dL (14.0-18.0); LYMPHOCYTES % 17.8 % (20.0-50.0); MEAN CORPUSCULAR HEMOGLOBIN 30.3 pg (28.0-32.0); MEAN PLATELET VOLUME 9.4 fl (7.4-10.4); MONOCYTES % 5.8 % (2.0-8.0); NEUTROPHILS % 74.9 % (40.0-76.0); PLATELET 215 x1000/uL (130-400); RED BLOOD CELL COUNT 5.52 mill/uL (4.7-6.1); RED CELL DISTRIBUTION WIDTH 14.1 % (11.6-14.6)
[2022-04-29 16:05] LABS: CHLORIDE 102 mEq/L (98-107)
[2022-04-29 16:21] LABS: HDL CHOLESTEROL 41 mg/dL (40-59); LDL CHOLESTEROL 112 mg/dL (5-100); T4 FREE 0.88 ng/dL (0.76-1.46)
== END | disposition home or self-care (01) ==
LOC: CARD 14:01
PROVIDERS: ATTEND Internal Medicine Endocrinology, Diabetes & Metabolism
DX: Z01.810 Encounter for preprocedural cardiovascular examination (principal); I45.10 Unspecified right bundle-branch block; I10 Essential (primary) hypertension; E11.9 Type 2 diabetes mellitus without complications; E78.5 Hyperlipidemia, unspecified; M54.9 Dorsalgia, unspecified; M06.9 Rheumatoid arthritis, unspecified
CPT/HCPCS: 36415; 80053; 80061; 82024; 82043; 82533; 82570; 83001; 83002; 83036; 84146; 84402; 84403; 84439; 84443; 85025; 85651; 86038; 86200; 86431; 93005

== ENCOUNTER → 2022-05-25 | Day surgery (SDC) | payer BC ==
[~2022-05-25] VITALS: Ht 182.9 cm; Wt 78.5 kg
[~2022-05-25] MED LIST changes: +ACETYLCHOLINE CHLORIDE INTRAOCULAR SOLUTION 1:100 ELECTROLYTE DILUENT IO ONE; +AMA4 PO; +ASPI-1497 PO; +BALANCED SALT IRRIG SOLN 15ML ONE; +BUPIVACAINE HCL/PF 0.75% (7.5MG/ML) 10ML ONE; +CHOL2000 PO; +CIPROFLOXACIN 0.3% OPHTH SOLN 2.5ML ONE; +DAPA10TA PO; +FENTANYL CITRATE/PF 50MCG/ML 2ML VIAL ONE; -GADOTERATE MEGLUMINE 5 MMOL/10 ML VIAL IV ONE; +HYDROMORPHONE HCL/PF 2MG/ML CPJ IV PRN; +LABETALOL 5MG/ML SYR 20 MG/4 ML SYRINGE IV PRN; +LATA5DRO BOTHEYE; +LIDOCAINE HCL 1% 10 MG/ML 10ML VIAL ONE; +LIDOCAINE HCL 2%/EPINEPHRINE 1:100,000 20 ML VIAL INFIL ONE; +MEPERIDINE HCL/PF 25MG/ML CPJ IV PRN; +METF-416 PO; +MIDAZOLAM HCL 2 MG/2 ML VIAL ONE; +NEO/POLYMYX B SULF/DEXAMETH OPHTH OINT 3.5GM ONE; +NETA2.5D3 BOTHEYE; +ONDANSETRON HCL 4MG/2ML INJ IV PRN; +PREDNISOLONE ACETATE 1% OPHTH DROPS 5ML ONE; +SODIUM CHLORIDE 0.9% 1,000 ML IV SCH; +TETRACAINE 0.5% OPHTH DROPS 4ML ONE; +TIMO5DRO32 LEFTEYE
== END | disposition home or self-care (01) ==
LOC: OR 11:30
PROVIDERS: ATTEND Ophthalmology
DX: E11.39 Type 2 diabetes mellitus with other diabetic ophthalmic complication (principal); H40.9 Unspecified glaucoma; Z79.82 Long term (current) use of aspirin; Z79.84 Long term (current) use of oral hypoglycemic drugs; Z98.890 Other specified postprocedural states; Z20.822 Contact with and (suspected) exposure to COVID-19
CPT/HCPCS: 66170; 82962; 87426; C9803; J2250; J3010; J3490

== ENCOUNTER → 2022-10-22 | Outpatient (CLI) | payer BC ==
[~2022-10-22] MED LIST changes: -ACETYLCHOLINE CHLORIDE INTRAOCULAR SOLUTION 1:100 ELECTROLYTE DILUENT IO ONE; -BALANCED SALT IRRIG SOLN 15ML ONE; -BUPIVACAINE HCL/PF 0.75% (7.5MG/ML) 10ML ONE; -CIPROFLOXACIN 0.3% OPHTH SOLN 2.5ML ONE; -FENTANYL CITRATE/PF 50MCG/ML 2ML VIAL ONE; -HYDROMORPHONE HCL/PF 2MG/ML CPJ IV PRN; -LABETALOL 5MG/ML SYR 20 MG/4 ML SYRINGE IV PRN; -LIDOCAINE HCL 1% 10 MG/ML 10ML VIAL ONE; -LIDOCAINE HCL 2%/EPINEPHRINE 1:100,000 20 ML VIAL INFIL ONE; -MEPERIDINE HCL/PF 25MG/ML CPJ IV PRN; -MIDAZOLAM HCL 2 MG/2 ML VIAL ONE; -NEO/POLYMYX B SULF/DEXAMETH OPHTH OINT 3.5GM ONE; -ONDANSETRON HCL 4MG/2ML INJ IV PRN; -PREDNISOLONE ACETATE 1% OPHTH DROPS 5ML ONE; -SODIUM CHLORIDE 0.9% 1,000 ML IV SCH; -TETRACAINE 0.5% OPHTH DROPS 4ML ONE
[2022-10-22 13:08] LABS: BASOPHILS % 1.4 % (0.0-2.0); HEMATOCRIT. 48.6 % (42.0-52.0); HEMOGLOBIN. 16.4 g/dL (14.0-18.0); LYMPHOCYTES % 25.7 % (20.0-50.0); MEAN CORPUSCULAR HEMOGLOBIN 29.9 pg (28.0-32.0); MEAN CORPUSCULAR HGB CONC 33.8 g/dL (31.0-37.0); MEAN CORPUSCULAR VOLUME 88.5 fL (80.0-94.0); MEAN PLATELET VOLUME 9.5 fl (7.4-10.4); MONOCYTES % 11.1 % (2.0-8.0); NEUTROPHILS % 59.8 % (40.0-76.0); PLATELET 201 x1000/uL (130-400); RED BLOOD CELL COUNT 5.49 mill/uL (4.7-6.1); RED CELL DISTRIBUTION WIDTH 13.9 % (11.6-14.6); WHITE BLOOD COUNT 4.3 x1000/uL (4.5-11.0)
[2022-10-22 13:36] LABS: INDEX HEMOLYSI 1 (1-3); INDEX ICTERIC 1 (1-4); INDEX LIPEMIC 1 (1-3)
[2022-10-22 13:49] LABS: ALANINE AMINOTRANSFERASE 24 IU/L (13-61); ALBUMIN 3.9 g/dL (3.4-5.0); ASPARTATE AMINOTRANSFERASE 13 IU/L (15-37); BILIRUBIN TOTAL 0.8 mg/dL (0.1-1.0); CALCIUM 8.1 mg/dL (8.5-10.1); CARBON DIOXIDE 28 mEq/L (21-32); CHOLESTEROL 159 mg/dL (<200); GLUCOSE 167 mg/dL (70-105); HDL CHOLESTEROL 46 mg/dL (40-59); LDL CHOLESTEROL 114 mg/dL (5-100); T4 FREE 0.89 ng/dL (0.76-1.46); TRIGLYCERIDE 63 mg/dL (0-150); UREA NITROGEN BLOOD 12 mg/dL (7-21)
[2022-10-22 14:44] LABS: ERYTHROCYTE SEDIMENTATION RATE 1 mm/hr (0-20)
[2022-10-22 15:21] LABS: CHLORIDE 103 mEq/L (98-107); POTASSIUM 4.5 mEq/L (3.5-5.1); SODIUM 136 mEq/L (136-145)
[2022-10-22 15:57] LABS: CORTISOL 12.4 ucg/dL
[2022-10-23 09:09] LABS: PROLACTIN 15.6 ng/mL (4.0-15.2); RF PROFILE < 10.0 IU/mL (<14.0); VITAMIN D 25-OH 34.9 ng/mL (30.0-100.0)
[2022-10-23 13:06] LABS: *CREATININE RANDOM URINE 97.8 mg/dL (Not Estab.); MICROALBUMIN RANDOM URINE 5.6 ug/mL (Not Estab.)
[2022-10-23 13:06] LABS: ANTI-NUCLEAR ANTIBODIES DIRECT Negative (Negative)
[2022-10-24 09:07] LABS: CCP IgG/IgA PROFILE 0 units (0-19)
[2022-10-28 04:07] LABS: METHYLMALONIC ACID 161 nmol/L (0-378)
== END | disposition home or self-care (01) ==
LOC: LAB 12:36
PROVIDERS: ATTEND Internal Medicine Endocrinology, Diabetes & Metabolism
DX: I10 Essential (primary) hypertension (principal); E78.00 Pure hypercholesterolemia, unspecified; D49.7 Neoplasm of unspecified behavior of endocrine glands and other parts of nervous system; E55.9 Vitamin D deficiency, unspecified; E04.1 Nontoxic single thyroid nodule; M54.9 Dorsalgia, unspecified
CPT/HCPCS: 36415; 80053; 80061; 82043; 82306; 82533; 82570; 82607; 82746; 83036; 83921; 84146; 84439; 84443; 85025; 85651; 86038; 86200; 86431

== ENCOUNTER → 2023-03-14 | Outpatient (CLI) | payer BC ==
[2023-03-14 08:24] LABS: BASOPHILS % 1.1 % (0.0-2.0); EOSINOPHILS % 2.3 % (0.0-5.0); HEMATOCRIT. 46.8 % (42.0-52.0); HEMOGLOBIN. 15.3 g/dL (14.0-18.0); LYMPHOCYTES % 32.2 % (20.0-50.0); MEAN CORPUSCULAR HEMOGLOBIN 29.7 pg (28.0-32.0); MEAN CORPUSCULAR HGB CONC 32.7 g/dL (31.0-37.0); MEAN CORPUSCULAR VOLUME 90.6 fL (80.0-94.0); MEAN PLATELET VOLUME 9.1 fl (7.4-10.4); NEUTROPHILS % 53.4 % (40.0-76.0); PLATELET 183 x1000/uL (130-400); RED BLOOD CELL COUNT 5.16 mill/uL (4.7-6.1); RED CELL DISTRIBUTION WIDTH 14.3 % (11.6-14.6); WHITE BLOOD COUNT 3.8 x1000/uL (4.5-11.0)
[2023-03-14 09:09] LABS: ALANINE AMINOTRANSFERASE 17 IU/L (10-49); ALBUMIN 4.3 g/dL (3.2-4.8); ASPARTATE AMINOTRANSFERASE 15 IU/L (<34); BILIRUBIN TOTAL 0.6 mg/dL (0.1-1.0); CALCIUM 8.9 mg/dL (8.7-10.4); CARBON DIOXIDE 26 mEq/L (21-32); CHLORIDE 105 mEq/L (98-107); CHOLESTEROL 151 mg/dL (<200); GLUCOSE 137 mg/dL (70-105); HDL CHOLESTEROL 41 mg/dL (>55); LDL CHOLESTEROL 96 mg/dL (5-100); POTASSIUM 4.2 mEq/L (3.5-5.1); PROTEIN TOTAL 7.6 g/dL (6.0-8.3); SODIUM 140 mEq/L (136-145); TRIGLYCERIDE 66 mg/dL (0-150); UREA NITROGEN BLOOD 11 mg/dL (9-23)
[2023-03-14 09:13] LABS: FOLIC ACID (FOLATE) SERUM 15.22 ng/mL (>5.38); VITAMIN B12 SERUM 393 pg/mL (211-911)
[2023-03-14 12:12] LABS: ERYTHROCYTE SEDIMENTATION RATE 2 mm/hr (0-20)
[2023-03-15 09:10] LABS: ANTI-NUCLEAR ANTIBODIES DIRECT Negative (Negative); PROLACTIN 14.9 ng/mL (3.6-25.2); RF PROFILE < 10.0 IU/mL (<14.0); VITAMIN D 25-OH 43.1 ng/mL (30.0-100.0)
[2023-03-15 14:08] LABS: *CREATININE RANDOM URINE 133.5 mg/dL (Not Estab.); MICROALBUMIN RANDOM URINE 10.1 ug/mL (Not Estab.)
== END | disposition home or self-care (01) ==
LOC: LAB 06:21
PROVIDERS: ATTEND Internal Medicine Endocrinology, Diabetes & Metabolism
DX: I10 Essential (primary) hypertension (principal); E11.9 Type 2 diabetes mellitus without complications; E55.9 Vitamin D deficiency, unspecified; E78.00 Pure hypercholesterolemia, unspecified
CPT/HCPCS: 36415; 80053; 80061; 82043; 82306; 82570; 82607; 82746; 83036; 83921; 84146; 85025; 85651; 86038; 86200; 86431

== ENCOUNTER → 2023-07-29 | Outpatient (CLI) | payer BC ==
[2023-07-29 10:21] LABS: BASOPHILS % 1.6 % (0.0-2.0); HEMOGLOBIN. 15.1 g/dL (14.0-18.0); LYMPHOCYTES % 34.5 % (20.0-50.0); MEAN CORPUSCULAR HEMOGLOBIN 30.2 pg (28.0-32.0); MEAN CORPUSCULAR HGB CONC 33.6 g/dL (31.0-37.0); MEAN CORPUSCULAR VOLUME 89.8 fL (80.0-94.0); MEAN PLATELET VOLUME 8.5 fl (7.4-10.4); MONOCYTES % 10.9 % (2.0-8.0); PLATELET 185 x1000/uL (130-400); RED BLOOD CELL COUNT 5.01 mill/uL (4.7-6.1); RED CELL DISTRIBUTION WIDTH 13.9 % (11.6-14.6); WHITE BLOOD COUNT 3.1 x1000/uL (4.5-11.0)
[2023-07-29 10:35] LABS: CARBON DIOXIDE 31 mEq/L (21-32); CHLORIDE 106 mEq/L (98-107); POTASSIUM 4.2 mEq/L (3.5-5.1); SODIUM 140 mEq/L (136-145)
[2023-07-29 10:36] LABS: CALCIUM 8.9 mg/dL (8.7-10.4)
[2023-07-29 10:40] LABS: CREATININE 1.1 mg/dL (0.6-1.3); GLUCOSE 136 mg/dL (70-105)
[2023-07-29 10:41] LABS: TRIGLYCERIDE 85 mg/dL (0-150); UREA NITROGEN BLOOD 9 mg/dL (9-23)
[2023-07-29 10:42] LABS: ALANINE AMINOTRANSFERASE 20 IU/L (10-49); LDL CHOLESTEROL 113 mg/dL (5-100)
[2023-07-29 10:43] LABS: ALBUMIN 4.6 g/dL (3.2-4.8); ASPARTATE AMINOTRANSFERASE 17 IU/L (<34); BILIRUBIN TOTAL 0.9 mg/dL (0.1-1.0); CHOLESTEROL 153 mg/dL (<200); HDL CHOLESTEROL 38 mg/dL (>55); PROTEIN TOTAL 7.3 g/dL (6.0-8.3)
[2023-07-29 10:45] LABS: T4 FREE 0.89 ng/dL (0.89-1.76)
[2023-07-29 10:47] LABS: THYROID STIMULATING HORMONE 1.67 uIU/mL (0.55-4.78)
[2023-07-30 08:11] LABS: PROLACTIN 15.3 ng/mL (3.6-25.2); VITAMIN D 25-OH 49.2 ng/mL (30.0-100.0)
[2023-07-30 13:07] LABS: *CREATININE RANDOM URINE 114.2 mg/dL (Not Estab.); MICROALBUMIN RANDOM URINE 6.1 ug/mL (Not Estab.)
== END | disposition home or self-care (01) ==
LOC: LAB 09:51
PROVIDERS: ATTEND Internal Medicine Endocrinology, Diabetes & Metabolism
DX: E78.5 Hyperlipidemia, unspecified (principal); E11.9 Type 2 diabetes mellitus without complications; D49.7 Neoplasm of unspecified behavior of endocrine glands and other parts of nervous system; E55.9 Vitamin D deficiency, unspecified
CPT/HCPCS: 36415; 80053; 80061; 82043; 82306; 82570; 83036; 84146; 84439; 84443; 85025

== ENCOUNTER → 2023-08-16 | Day surgery (SDC) | payer BC ==
[~2023-08-16] VITALS: Ht 175.3 cm; Wt 79.8 kg
[~2023-08-16] MED LIST changes: -AMA4 PO; +BALANCED SALT IRRIG SOLN 15ML ONE; +BALANCED SALT IRRIG SOLN COMB1 500ML OP NR; -CHOL2000 PO; +CYCLOPENTOLATE HCL 1% OPHTH DROPS 2ML LEFTEYE SCH; +DORZ10DR32 RIGHTEYE; +FENTANYL CITRATE/PF 50MCG/ML 2ML VIAL ONE; +HYALURONATE SODIUM 10MG/ML 0.55ML SYRINGE IO ONE; +KETOROLAC 30MG/ML VIAL ONE; +MIDAZOLAM HCL 2 MG/2 ML VIAL ONE; -NETA2.5D3 BOTHEYE; +PHENYLEPHRINE HCL 10% OPHTH DROPS 5ML LEFTEYE SCH; +SEMA7TAB2 PO; -TIMO5DRO32 LEFTEYE; +TROPICAMIDE 1% OPHTH DROPS 15ML LEFTEYE SCH; +TRYPAN BLUE 0.5 ML DISP.SYRIN IO ONE
[2023-08-16] MEDS: SODIUM CHLORIDE 0.9% 1,000 ML IV SCH (06:22)
== END | disposition home or self-care (01) ==
LOC: OR 05:26
PROVIDERS: ATTEND Ophthalmology
DX: E11.36 Type 2 diabetes mellitus with diabetic cataract (principal); H25.89 Other age-related cataract; Z79.899 Other long term (current) drug therapy; Z98.890 Other specified postprocedural states; Z79.82 Long term (current) use of aspirin; Z79.84 Long term (current) use of oral hypoglycemic drugs
CPT/HCPCS: 66984; 82962; 93005; J3010; J1885; J3490 ×2; J2250; V2632; Q9957

== ENCOUNTER → 2023-09-15 | Outpatient (CLI) | payer BC ==
[~2023-09-15] MED LIST changes: -BALANCED SALT IRRIG SOLN 15ML ONE; -BALANCED SALT IRRIG SOLN COMB1 500ML OP NR; -CYCLOPENTOLATE HCL 1% OPHTH DROPS 2ML LEFTEYE SCH; -FENTANYL CITRATE/PF 50MCG/ML 2ML VIAL ONE; -HYALURONATE SODIUM 10MG/ML 0.55ML SYRINGE IO ONE; -KETOROLAC 30MG/ML VIAL ONE; -MIDAZOLAM HCL 2 MG/2 ML VIAL ONE; -PHENYLEPHRINE HCL 10% OPHTH DROPS 5ML LEFTEYE SCH; +REGADENOSON 0.4 MG/5 ML IV ONE; -TROPICAMIDE 1% OPHTH DROPS 15ML LEFTEYE SCH; -TRYPAN BLUE 0.5 ML DISP.SYRIN IO ONE
== END | disposition home or self-care (01) ==
LOC: NM 08:52
PROVIDERS: ATTEND Specialist
DX: I25.10 Atherosclerotic heart disease of native coronary artery without angina pectoris (principal)
CPT/HCPCS: 78452; 93017; J2785; A9500

== ENCOUNTER → 2023-12-27 | Outpatient (CLI) | payer BC ==
[~2023-12-27] MED LIST changes: -REGADENOSON 0.4 MG/5 ML IV ONE
[2023-12-27 08:42] LABS: BASOPHILS % 0.7 % (0.0-2.0); EOSINOPHILS % 2.7 % (0.0-5.0); HEMATOCRIT. 51.3 % (42.0-52.0); HEMOGLOBIN. 16.6 g/dL (14.0-18.0); LYMPHOCYTES % 29.6 % (20.0-50.0); MEAN CORPUSCULAR HEMOGLOBIN 29.3 pg (28.0-32.0); MEAN CORPUSCULAR HGB CONC 32.3 g/dL (31.0-37.0); MEAN CORPUSCULAR VOLUME 90.7 fL (80.0-94.0); MEAN PLATELET VOLUME 9.2 fl (7.4-10.4); MONOCYTES % 13.3 % (2.0-8.0); NEUTROPHILS % 53.7 % (40.0-76.0); PLATELET 237 x1000/uL (130-400); RED BLOOD CELL COUNT 5.66 mill/uL (4.7-6.1); RED CELL DISTRIBUTION WIDTH 13.9 % (11.6-14.6); WHITE BLOOD COUNT 3.1 x1000/uL (4.5-11.0)
[2023-12-27 08:59] LABS: DIFFERENTIAL COMMENT 1
[2023-12-27 09:14] LABS: T4 FREE 1.13 ng/dL (0.89-1.76); THYROID STIMULATING HORMONE 1.58 uIU/mL (0.55-4.78)
[2023-12-28 09:07] LABS: FOLICLE STIMULATING HORMONE 13.6 mIU/mL (1.5-12.4); PROLACTIN 15.3 ng/mL (3.6-25.2); PROSTATE SPECIFIC AG TOTAL 3.1 ng/mL (0.0-4.0); VITAMIN D 25-OH 41.9 ng/mL (30.0-100.0)
== END | disposition home or self-care (01) ==
LOC: LAB 06:03
PROVIDERS: ATTEND Internal Medicine Endocrinology, Diabetes & Metabolism
DX: Z13.9 Encounter for screening, unspecified (principal); I10 Essential (primary) hypertension; E11.9 Type 2 diabetes mellitus without complications; E55.9 Vitamin D deficiency, unspecified; E78.5 Hyperlipidemia, unspecified; D35.2 Benign neoplasm of pituitary gland
CPT/HCPCS: 36415; 80061; 82024; 82306; 82533; 83001; 83002; 83036; 84146; 84153; 84402; 84439; 84443; 85025

== ENCOUNTER → 2024-03-09 | Outpatient (CLI) | payer BC ==
[2024-03-09 11:20] LABS: BASOPHILS % 1.4 % (0.0-2.0); EOSINOPHILS % 6.3 % (0.0-5.0); HEMATOCRIT. 46.6 % (42.0-52.0); HEMOGLOBIN. 15.6 g/dL (14.0-18.0); LYMPHOCYTES % 35.2 % (20.0-50.0); MEAN CORPUSCULAR HEMOGLOBIN 30.4 pg (28.0-32.0); MEAN CORPUSCULAR HGB CONC 33.4 g/dL (31.0-37.0); MEAN CORPUSCULAR VOLUME 90.8 fL (80.0-94.0); MEAN PLATELET VOLUME 8.6 fl (7.4-10.4); MONOCYTES % 12.3 % (2.0-8.0); NEUTROPHILS % 44.8 % (40.0-76.0); PLATELET 190 x1000/uL (130-400); RED BLOOD CELL COUNT 5.13 mill/uL (4.7-6.1); WHITE BLOOD COUNT 3.4 x1000/uL (4.5-11.0)
[2024-03-09 11:23] LABS: CHLORIDE 103 mEq/L (98-107); POTASSIUM 4.5 mEq/L (3.5-5.1); SODIUM 139 mEq/L (136-145)
[2024-03-09 11:24] LABS: CALCIUM 9.1 mg/dL (8.7-10.4); CARBON DIOXIDE 30 mEq/L (21-32)
[2024-03-09 11:29] LABS: CREATININE 1.1 mg/dL (0.6-1.3); GLUCOSE 98 mg/dL (70-105); TRIGLYCERIDE 71 mg/dL (0-150); UREA NITROGEN BLOOD 11 mg/dL (9-23); URIC ACID 4.8 mg/dL (3.7-9.2)
[2024-03-09 11:30] LABS: LDL CHOLESTEROL 102 mg/dL (5-100)
[2024-03-09 11:31] LABS: ALANINE AMINOTRANSFERASE 13 IU/L (10-49); ALBUMIN 4.4 g/dL (3.2-4.8); ASPARTATE AMINOTRANSFERASE 16 IU/L (<34); CHOLESTEROL 156 mg/dL (<200); HDL CHOLESTEROL 39 mg/dL (>55)
[2024-03-09 11:32] LABS: BILIRUBIN TOTAL 1.1 mg/dL (0.1-1.0); PROTEIN TOTAL 6.9 g/dL (6.0-8.3)
[2024-03-09 11:33] LABS: T4 FREE 1.07 ng/dL (0.89-1.76)
[2024-03-09 11:34] LABS: THYROID STIMULATING HORMONE 1.16 uIU/mL (0.55-4.78)
[2024-03-11 05:12] LABS: *CREATININE RANDOM URINE 127.9 mg/dL (Not Estab.); MICROALBUMIN RANDOM URINE 8.5 ug/mL (Not Estab.)
[2024-03-13 09:09] LABS: VITAMIN D 25-OH 40.9 ng/mL (30.0-100.0)
== END | disposition home or self-care (01) ==
LOC: LAB 10:26
PROVIDERS: ATTEND Internal Medicine Endocrinology, Diabetes & Metabolism
DX: E11.9 Type 2 diabetes mellitus without complications (principal); I10 Essential (primary) hypertension; E78.5 Hyperlipidemia, unspecified; E55.9 Vitamin D deficiency, unspecified
CPT/HCPCS: 36415; 80053; 80061; 82043; 82306; 82570; 83036; 84439; 84443; 84550; 85025

== ENCOUNTER → 2024-05-22 | Outpatient (CLI) | payer BC ==
[~2024-05-22] MED LIST changes: +GADOTERATE MEGLUMINE 5 MMOL/10 ML VIAL IV ONE
== END | disposition home or self-care (01) ==
LOC: MRI 10:38
PROVIDERS: ATTEND Internal Medicine Endocrinology, Diabetes & Metabolism
DX: D35.2 Benign neoplasm of pituitary gland (principal); I67.89 Other cerebrovascular disease; R22.1 Localized swelling, mass and lump, neck
CPT/HCPCS: 70553; A9577

== ENCOUNTER → 2024-08-02 | Outpatient (CLI) | payer BC ==
[~2024-08-02] MED LIST changes: -GADOTERATE MEGLUMINE 5 MMOL/10 ML VIAL IV ONE
[2024-08-02 08:56] LABS: BASOPHILS % 3.1 % (0.0-2.0); EOSINOPHILS % 2.4 % (0.0-5.0); HEMATOCRIT. 45.2 % (42.0-52.0); HEMOGLOBIN. 15.7 g/dL (14.0-18.0); LYMPHOCYTES % 31.5 % (20.0-50.0); MEAN CORPUSCULAR HEMOGLOBIN 30.2 pg (28.0-32.0); MEAN CORPUSCULAR HGB CONC 34.7 g/dL (31.0-37.0); MEAN CORPUSCULAR VOLUME 87.2 fL (80.0-94.0); MEAN PLATELET VOLUME 8.7 fl (7.4-10.4); MONOCYTES % 13.7 % (2.0-8.0); NEUTROPHILS % 49.3 % (40.0-76.0); PLATELET 194 x1000/uL (130-400); RED BLOOD CELL COUNT 5.18 mill/uL (4.7-6.1); RED CELL DISTRIBUTION WIDTH 13.8 % (11.6-14.6)
[2024-08-02 09:59] LABS: CHLORIDE 104 mEq/L (98-107); POTASSIUM 3.9 mEq/L (3.5-5.1); SODIUM 138 mEq/L (136-145)
[2024-08-02 10:00] LABS: CALCIUM 8.7 mg/dL (8.7-10.4); CARBON DIOXIDE 27 mEq/L (21-32)
[2024-08-02 10:05] LABS: CREATININE 1.1 mg/dL (0.6-1.3); GLUCOSE 118 mg/dL (70-105); TRIGLYCERIDE 80 mg/dL (0-150); UREA NITROGEN BLOOD 14 mg/dL (9-23); URIC ACID 5.4 mg/dL (3.7-9.2)
[2024-08-02 10:06] LABS: LDL CHOLESTEROL 90 mg/dL (5-100); THYROID STIMULATING HORMONE 1.44 uIU/mL (0.55-4.78)
[2024-08-02 10:07] LABS: ALANINE AMINOTRANSFERASE 35 IU/L (10-49); ALBUMIN 4.3 g/dL (3.2-4.8); ASPARTATE AMINOTRANSFERASE 24 IU/L (<34); BILIRUBIN TOTAL 0.9 mg/dL (0.1-1.0); CHOLESTEROL 135 mg/dL (<200); HDL CHOLESTEROL 35 mg/dL (>55)
[2024-08-02 10:08] LABS: PROTEIN TOTAL 6.8 g/dL (6.0-8.3)
[2024-08-03 06:11] LABS: VITAMIN D 25-OH 43.1 ng/mL (30.0-100.0)
[2024-08-03 09:07] LABS: FOLICLE STIMULATING HORMONE 13.1 mIU/mL (1.5-12.4); PROLACTIN 15.3 ng/mL (3.6-25.2)
[2024-08-05 04:08] LABS: TESTOSTERONE FREE 12.2 pg/mL (7.2-24.0)
== END | disposition home or self-care (01) ==
LOC: LAB 08:02
PROVIDERS: ATTEND Internal Medicine Endocrinology, Diabetes & Metabolism
DX: I10 Essential (primary) hypertension (principal); E11.9 Type 2 diabetes mellitus without complications; E78.5 Hyperlipidemia, unspecified
CPT/HCPCS: 36415; 80053; 80061; 82024; 82043; 82306; 82533; 82570; 83001; 83002; 83036; 84146; 84402; 84403; 84439; 84443; 84550; 85025

== ENCOUNTER → 2024-12-04 | Outpatient (CLI) | payer BC ==
[2024-12-04 11:32] LABS: BASOPHILS % 1.2 % (0.0-2.0); CREATININE 1.1 mg/dL (0.6-1.3); EOSINOPHILS % 2.6 % (0.0-5.0); HEMATOCRIT. 47.0 % (42.0-52.0); HEMOGLOBIN. 15.5 g/dL (14.0-18.0); LYMPHOCYTES % 29.5 % (20.0-50.0); MEAN PLATELET VOLUME 8.4 fl (7.4-10.4); MONOCYTES % 13.0 % (2.0-8.0); NEUTROPHILS % 53.7 % (40.0-76.0); PLATELET 203 x1000/uL (130-400); RED BLOOD CELL COUNT 5.32 mill/uL (4.7-6.1); RED CELL DISTRIBUTION WIDTH 13.8 % (11.6-14.6); UREA NITROGEN BLOOD 8 mg/dL (9-23)
[2024-12-04 11:34] LABS: ASPARTATE AMINOTRANSFERASE 13 IU/L (<34); BILIRUBIN TOTAL 0.9 mg/dL (0.1-1.0); PROTEIN TOTAL 7.2 g/dL (6.0-8.3)
[2024-12-04 11:54] LABS: CLARITY URINE CLEAR (CLEAR); COLOR URINE YELLOW (YELLOW); GLUCOSE URINE 3+ (NEGATIVE); KETONES URINE NEGATIVE (NEGATIVE); LEUKOCYTE ESTERASE URINE NEGATIVE (NEGATIVE); NITRITE URINE NEGATIVE (NEGATIVE); OCCULT BLOOD URINE NEGATIVE (NEGATIVE); PH URINE 5.5 (4.5-8.0); PROTEIN URINE NEGATIVE (NEGATIVE); SPECIFIC GRAVITY URINE 1.039 (1.005-1.030); UROBILINOGEN URINE 0.2 E.U./dL (0.2-1.0)
[2024-12-04 12:00] LABS: INR 1.0
[2024-12-04 12:15] LABS: RBC URINE NONE SEEN /hpf (0-2); SQUAMOUS EPITHELIAL CELL URINE RARE /lpf (RARE/1+); WBC URINE 0-2 /hpf (0-2)
[2024-12-04 12:16] LABS: BACTERIA URINE NONE SEEN
== END | disposition home or self-care (01) ==
LOC: RAD 10:28
PROVIDERS: ATTEND Internal Medicine Endocrinology, Diabetes & Metabolism
DX: Z01.818 Encounter for other preprocedural examination (principal)
CPT/HCPCS: 36415; 71046; 80053; 81003; 85025

== ENCOUNTER → 2025-01-08 | Outpatient (CLI) | payer BC ==
[2025-01-08 11:18] LABS: BASOPHILS % 1.0 % (0.0-2.0); EOSINOPHILS % 3.1 % (0.0-5.0); HEMATOCRIT. 48.1 % (42.0-52.0); HEMOGLOBIN. 15.9 g/dL (14.0-18.0); LYMPHOCYTES % 39.0 % (20.0-50.0); MEAN PLATELET VOLUME 8.3 fl (7.4-10.4); MONOCYTES % 13.6 % (2.0-8.0); NEUTROPHILS % 43.3 % (40.0-76.0); PLATELET 207 x1000/uL (130-400); RED BLOOD CELL COUNT 5.39 mill/uL (4.7-6.1); RED CELL DISTRIBUTION WIDTH 14.0 % (11.6-14.6)
[2025-01-08 11:31] LABS: INR 1.0
[2025-01-08 11:37] LABS: CLARITY URINE CLEAR (CLEAR); COLOR URINE YELLOW (YELLOW); GLUCOSE URINE 3+ (NEGATIVE); KETONES URINE NEGATIVE (NEGATIVE); LEUKOCYTE ESTERASE URINE NEGATIVE (NEGATIVE); NITRITE URINE NEGATIVE (NEGATIVE); OCCULT BLOOD URINE NEGATIVE (NEGATIVE); PH URINE 5.0 (4.5-8.0); PROTEIN URINE NEGATIVE (NEGATIVE); SPECIFIC GRAVITY URINE 1.034 (1.005-1.030); UROBILINOGEN URINE 0.2 E.U./dL (0.2-1.0)
[2025-01-08 11:41] LABS: CREATININE 1.1 mg/dL (0.6-1.3); UREA NITROGEN BLOOD 9 mg/dL (9-23)
[2025-01-08 11:43] LABS: ASPARTATE AMINOTRANSFERASE 17 IU/L (<34); BILIRUBIN TOTAL 1.0 mg/dL (0.1-1.0); PROTEIN TOTAL 8.6 g/dL (6.0-8.3)
[2025-01-08 11:46] LABS: T4 FREE 1.20 ng/dL (0.89-1.76)
[2025-01-08 12:05] LABS: BACTERIA URINE NONE SEEN; RBC URINE NONE SEEN /hpf (0-2); SQUAMOUS EPITHELIAL CELL URINE NONE SEEN /lpf (RARE/1+); WBC URINE 0-2 /hpf (0-2)
[2025-01-08 12:06] LABS: YEAST URINE NONE SEEN
[2025-01-09 09:07] LABS: ESTRADIOL 27.5 pg/mL (7.6-42.6); FOLICLE STIMULATING HORMONE 15.7 mIU/mL (1.5-12.4); PROLACTIN 17.9 ng/mL (3.6-25.2)
[2025-01-12 04:10] LABS: INSULIN-LIKE GROWTH FACTOR 1 162.0 ng/mL (68-247)
== END | disposition home or self-care (01) ==
LOC: LAB 10:39
PROVIDERS: ATTEND Internal Medicine Endocrinology, Diabetes & Metabolism
DX: Z01.812 Encounter for preprocedural laboratory examination (principal); Z79.899 Other long term (current) drug therapy
CPT/HCPCS: 36415; 80053; 81001; 81003; 82024; 82670; 83001; 84146; 84305; 84439; 84443; 84481; 85025

== ENCOUNTER → 2025-01-18 | Outpatient (CLI) | payer BC | END | disposition home or self-care (01) | LOC: LAB 08:06 | DX: D49.7 Neoplasm of unspecified behavior of endocrine glands and other parts of nervous system (principal) | CPT/HCPCS: 36415; 84295 ==

== ENCOUNTER → 2025-02-07 | Outpatient (CLI) | payer BC ==
[2025-02-07 12:09] LABS: BASOPHILS % 1.3 % (0.0-2.0); EOSINOPHILS % 3.0 % (0.0-5.0); HEMATOCRIT. 48.0 % (42.0-52.0); HEMOGLOBIN. 16.3 g/dL (14.0-18.0); LYMPHOCYTES % 23.5 % (20.0-50.0); MEAN PLATELET VOLUME 8.5 fl (7.4-10.4); MONOCYTES % 10.2 % (2.0-8.0); NEUTROPHILS % 62.0 % (40.0-76.0); PLATELET 243 x1000/uL (130-400); RED BLOOD CELL COUNT 5.42 mill/uL (4.7-6.1); RED CELL DISTRIBUTION WIDTH 13.2 % (11.6-14.6)
[2025-02-07 12:35] LABS: CREATININE 1.2 mg/dL (0.6-1.3); UREA NITROGEN BLOOD 12 mg/dL (9-23)
[2025-02-07 12:36] LABS: LDL CHOLESTEROL 122 mg/dL (5-100); PROTEIN TOTAL 8.5 g/dL (6.0-8.3); TRIGLYCERIDE 70 mg/dL (0-150)
[2025-02-07 12:37] LABS: ASPARTATE AMINOTRANSFERASE 17 IU/L (<34)
[2025-02-07 12:38] LABS: BILIRUBIN TOTAL 0.7 mg/dL (0.1-1.0)
[2025-02-07 12:39] LABS: T4 FREE 1.06 ng/dL (0.89-1.76)
[2025-02-09 09:07] LABS: FOLICLE STIMULATING HORMONE 8.8 mIU/mL (1.5-12.4); LUTEINIZING HORMONE 6.2 mIU/mL (1.7-8.6); PROLACTIN 13.5 ng/mL (3.6-25.2)
[2025-02-09 09:07] LABS: *CREATININE RANDOM URINE 114.5 mg/dL (Not Estab.); MICROALBUMIN RANDOM URINE 3.3 ug/mL (Not Estab.); MICROALBUMIN/CREATININE RATIO 3.0 mg/g creat (0-29)
[2025-02-10 13:11] LABS: TESTOSTERONE FREE 14.8 pg/mL (7.2-24.0)
== END | disposition home or self-care (01) ==
LOC: LAB 11:05
PROVIDERS: ATTEND Internal Medicine Endocrinology, Diabetes & Metabolism
DX: I10 Essential (primary) hypertension (principal); E11.9 Type 2 diabetes mellitus without complications; M10.9 Gout, unspecified
CPT/HCPCS: 36415; 80053; 80061; 82024; 82043; 82570; 83001; 83002; 83036; 84146; 84402; 84403; 84439; 84443; 84550; 85025